=== PATIENT | female | born 1965 | race Caucasian/White ===

== ENCOUNTER 2017-08-26 08:00 | Outpatient (CLI) | payer BC ==
[2013-09-15 09:29] VITALS: BMI 32.9
[~2017-08-26 08:00] MED LIST: CLARITIN-D1 TAB.SR1 PO; PREVACID30 MG PO
== END 2017-08-26 11:30 | disposition home or self-care (01) ==
LOC: D.MAMMO 08:00
DX: Z12.31 Encounter for screening mammogram for malignant neoplasm of breast (principal)

== ENCOUNTER 2018-12-09 09:00 | Outpatient (CLI) | payer BC ==
[2013-09-15 09:29] VITALS: BMI 32.9
== END 2018-12-09 10:00 | disposition home or self-care (01) ==
LOC: D.MAMMO 09:00
PROVIDERS: ATTEND Family Medicine
DX: Z12.31 Encounter for screening mammogram for malignant neoplasm of breast (principal)